=== PATIENT | female | born 1990 | race Caucasian/White ===

== ENCOUNTER 2016-07-14 11:44 | Emergency (ER) | payer BC ==
[2016-07-14 11:52] VITALS: BP 155/85
[2016-07-14] MEDS ORDERED: IBUPROFEN 100 MG/5 ML BTL PO ONE (11:58)
--- OUTSIDE RECORDS SUMMARY | 2016-07-14 12:03 | XMS REPORT | Continuity of Care Document ---
:1990 Author Organization [facility] [place] [address] Care Team Providers Name Role Phone Unavailable Primary Care Provider Unavailable Source Comments This disclosure is being made pursuant to the [employer] program and maynot contain all information available regarding this patient.[facility] Active Allergies and Adverse Reactions Not on File Current Medications Be aware that medications may not be up to date as of this document. Alwaysverify current medications with the patient. Not on file Active Problems Not on file Social History Tobacco Use Types Packs/Day Years Used Date Current Every Day Smoker Last Filed Vital Signs Vital Sign Reading Time Taken Blood Pressure 100/60 12/20/2011 2:35 PM CDT Pulse - - Temperature - - Respiratory Rate - - Height - - Weight 64.411 kg (142 lb) 12/20/2011 2:30 PM CDT Body Mass Index - - Oxygen Saturation - - Plan of Care Health Maintenance Due Date Last Done Comments HPV Vaccine ([id number]) (1 of 3 - Female/Unknown 3 Dose 2000 Series) Retired-Pertussis Vaccine Adult 2008 Retired-Tetanus Vaccine Adult 2008 Pap Smear 12/19/2014 12/20/2011 Retired-INFLUENZA VACCINE 12/21/2014 Results from Last 3 Months Not on file
--- OUTSIDE RECORDS SUMMARY | 2016-07-14 12:03 | XMS REPORT | Continuity of Care Document ---
:1990 Author Organization [facility] ([facility]) Address [address] [place] [address] Phone [phone] Care Team Providers Name Role Phone Juanito Chung Primary Care Provider [phone] Source Comments This disclosure is being made pursuant to the Care Everywhere program, applicable federal and state laws, and may not contain all informaitonavailable regarding this patient.[facility] ([facility]) Active Allergies and Adverse Reactions Allergen Noted Date Severity Reactions Comments Sulfa (Sulfonamide Antibiotics) 12/01/2015 Rash Current Medications Prescription Sig. Disp. Refills Start Date End Date Status oxyCODONE-acetamino Take 1-2 tablets by 50 tablet 0 12/08/2015 Active phen 5-325 mg per mouth every 4 hours tablet as needed for Pain. Do NOT exceed 4000 mg of acetaminophen per 24 hours. NIFEdipine 30 mg ER Take 1 tablet (30 50 tablet 0 12/08/2015 Active tablet mg total) by mouth daily. labetalol 200 mg Take 2 tablets (400 250 tablet 1 12/08/2015 Active tablet mg total) by mouth every 8 hours. docusate 100 mg Take 1 capsule (100 120 capsule 2 12/08/2015 Active capsule mg total) by mouth 2 times daily. Active Problems Problem Noted Date S/P section 12/06/2015 Resolved Problems Problem Noted Date Resolved Date Hypertension in , preeclampsia, severe, antepartum 12/02/20152015 History of delivery, currently in second 12/02/20152015 trimester Preeclampsia 12/01/2015 12/14/2015 Social History Tobacco Use Types Packs/Day Years Used Date Never Smoker Smokeless Tobacco: Never Used Last Filed Vital Signs Vital Sign Reading Time Taken Blood Pressure 111/66 12/14/2015 2:23 PM CDT Pulse 100 12/14/2015 2:23 PM CDT Temperature 36.8 C (98.2 F) 12/14/2015 2:23 PM CDT Respiratory Rate 16 12/08/2015 8:05 AM CDT Height 1.702 m (5' 7") 12/01/2015 7:25 PM CDT Weight 66.5 kg (146 lb 9.7 oz) 12/14/2015 2:23 PM CDT Body Mass Index 22.96 12/14/2015 2:23 PM CDT Oxygen Saturation 98% 12/08/2015 8:05 AM CDT Plan of Care Health Maintenance Due Date Last Done Comments Hepatitis B Vaccine (1 of 3 - Primary Series) 1990 HPV Vaccine (1 of 3 - Female/Unknown 3 Dose Series) 2000 Tdap Vaccine 2000 Cervical Cancer Screening 09/07/2007 Lipid Disorder Screening 09/07/2007 MMR Vaccine 09/07/2007 Td Vaccine 09/07/2007 Varicella Vaccine (1 of 2 - Adult - No Evidence of 09/07/2007 Immunity) Influenza Vaccine: Seasonal (#1) 11/21/2015 Results from Last 3 Months Not on file
--- NOTE | 2016-07-14 12:04 | ERNOTE ---
Date of Service: 07/14/16 Time Seen by Provider: 07/14/16 11:52 Stated Complaint: BODY ACHES, FEVER Presenting Symptoms:: cough Source: patient Exam Limitations: no limitations Immunizations: IMMUNIZATION HX Immunizations Up to Date Yes History of Influenza Vaccine Yes Allergies/Adverse Reactions: Allergies citalopram hydrobromide [From Celexa] Adverse Reaction (Intermediate, Verified 07/14/16 11:51) Other duloxetine HCl [From Cymbalta] Adverse Reaction (Intermediate, Verified 11:51) Other sertraline HCl [From Zoloft] Adverse Reaction (Intermediate, Verified 07/14/16 11:51) Other Sulfa (Sulfonamide Antibiotics) Adverse Reaction (Intermediate, Verified 11:51) Vomiting Home Medications: HOME MEDICATIONS NK [No Home Medication] 07/14/16 [Last Taken Unknown] - History of Present Ilness Narrative: Pt. comes in with c/o body aches fever and sore throat since this morning. Pt. denies any rhinorrhea, cough, SOB, but does state that she has had white and yellow sputum from her throat and is having difficulty swallowing foods and fluids due to the pain. Pt. denies any alleviating factors or prehospital treatment. Review of Systems - Review of Systems Constitutional: Present: fever, chills, fatigue, malaise. Absent: recent illness, weakness EYE: Present: no symptoms reported ENT: Present: sore throat. Absent: ear pain, ear discharge, nose pain, nose congestion, nasal drainage Respiratory: Present: no symptoms reported. Absent: shortness of breath, cough , wheezing Cardiology: Present: no symptoms reported. Absent: chest pain, palpitations, edema Gastrointestinal/Abdominal: Present: no symptoms reported. Absent: nausea, vomiting, diarrhea Genitourinary: Present: no symptoms reported. Absent: frequency, decreased urinary output Musculoskeletal: Present: no symptoms reported. Absent: back pain, joint pain Skin: Present: no symptoms reported. Absent: rash, change in color Neurological: Present: no symptoms reported. Absent: headache, dizziness/light- headedness, numbness, tingling All Other Systems: All systems neg except as marked - Patient's Past Medical History Patient History - Medical: No pertinent hx Patient History - Cardiac/Respiratory: No pertinent hx Patient History - Cancer: No Hx of Cancer Patient History - Surgical Procedures: , Tubal Ligation - Social History Smoking Status: Current some day smoker Have you smoked in the past 12 months: Yes - Immunizations Immunizations Up to Date: Yes History of Influenza Vaccine: Yes Physical Exam - Physical Exam General Appearance: Present: wd/wn, alert, no apparent distress Eye Exam: Normal inspection: bilateral, PERRL: bilateral, EOMI: bilateral Ears, Nose, Throat: Present: pharyngeal erythema, pharyngeal swelling, tonsillar exudate - white exudate tonsils absent Neck: Present: supple, full range of motion, lymphadenopathy (R) - submandibular and post auricular, lymphadenopathy (L) - submandibular and post auricular Respiratory: Present: no respiratory distress, normal breath sounds, no accessory muscle use, chest nontender, lungs clear. Absent: crackles, rales, rhonchi, stridor, wheezing Cardiovascular/Chest: Present: regular rate, rhythm, no murmur, normal peripheral pulses Gastrointestinal/Abdominal: Present: normal bowel sounds, nontender, nondistended, soft, no organomegaly Back Exam: Present: normal inspection, normal range of motion, no CVA tenderness , no vertebral tenderness Extremity Exam: Present: normal inspection, non-tender, normal range of motion, no edema Neurological Exam: Present: alert, oriented, normal mood/affect, no motor/ sensory deficits, bar helper II-XII nml as tested, normal cerebellar test Skin Exam: Present: normal color, warm/dry. Absent: pallor, skin rash ED Progress - Results and Orders Patient's Lab Results:: I have reviewed the patient's lab results. - Vital Signs Patient's Vital Signs:: I have reviewed the patient's vital signs. Vital Signs: Vital Signs 07/14/16 11:45 Temperature 37 C Pulse Rate 130 H Respiratory 16 Rate Blood Pressure 155/85 O2 Sat by Pulse 97 Oximetry - Progress/Reassessment Chief Complaint: Upper Respiratory Symptoms Departure - Departure Clinical Impression: Strep throat Disposition: Home self-care Condition: Good Instructions: Strep Throat, [id number] Additional Instructions: Strep throat is very contagious if anyone that you have exposed develops severe sore throat please have them follow up with their Primary provider as you should do as well in 3-5 days if not improving. Referrals: Marcelle Liu, [Primary Care Provider] -
[2016-07-14] MEDS ORDERED: IBUPROFEN 600 MG TABLET ONE (12:21)
[2016-07-14] MEDS ORDERED: PENICILLIN G BENZATHINE 2 ML SYRG IM ONE ×2 (12:56→13:00)
== END 2016-07-14 12:59 | disposition home or self-care (01) ==
LOC: ER 11:44
DX: J02.0 Streptococcal pharyngitis (principal); Z72.0 Tobacco use